=== PATIENT | female | born 1955 | race Caucasian/White ===

== ENCOUNTER → 2016-05-11 | Outpatient (CLI) | payer BC ==
[~2016-05-11] MED LIST: ALLOPURINOL300 MG PO; ATENOLOL50 MG PO; B COMPLETE1 EACH PO; CALTRATE PLUS1 EACH PO; FERROUS SULFAT325 MG PO; GABAPENTIN300 MG PO; IRBESARTAN150 MG PO; KLOR-CON M2020 MEQ PO; LASIX40 MG PO; LIPITOR20 MG PO; LO-DOSE ASPIRIN81 M1 PO; LORATADINE10 M2 PO; MELOXICAM15 MG PO; TYLENOL EXTRA500 MG PO
== END | disposition home or self-care (01) ==
DX: M17.12 Unilateral primary osteoarthritis, left knee (principal); M25.562 Pain in left knee; M25.662 Stiffness of left knee, not elsewhere classified; R26.2 Difficulty in walking, not elsewhere classified
CPT/HCPCS: 97110 GP; 97150 GO; 97161 GP; 97165 GO

== ENCOUNTER 2016-05-31 05:42 | Inpatient (IN) | payer BC ==
[~2016-05-31] VITALS: Ht 170.2 cm; Wt 120.2 kg
[2016-05-31 06:00] VITALS: BP 105/62
[2016-05-31] MEDS ORDERED: COUMADIN2.5 MG PO (09:27)
[2016-05-31] MEDS ORDERED: VISTARIL25 MG PO (09:27)
[2016-05-31] MEDS ORDERED: LAB DRAW (09:27)
[2016-05-31] MEDS ORDERED: PERCOCET 5/31 TABLET PO (09:27)
[2016-05-31 10:47] VITALS: BP 155/65
[2016-05-31 16:32] VITALS: BP 125/65
[2016-05-31 19:50] VITALS: BP 144/68
[2016-05-31 23:21] VITALS: BP 129/61
[2016-06-01 03:26] VITALS: BP 117/55
[2016-06-01 05:54] LABS: HEMATOCRIT 28.1 % (36.0-46.0)
[2016-06-01 06:22] LABS: ANION GAP 7 MEQ/L (2-14); CHLORIDE 105 MEQ/L (99-109); GFR ESTIMATE (CALCULATED) > 59 mL/min/; GLUCOSE 126 mg/dL (70-99); POTASSIUM 4.1 MEQ/L (3.7-5.4); SAMPLE HEMOLYSIS CHECK 0; SAMPLE ICTERIC CHECK 0; SAMPLE LIPEMIA CHECK 0; SODIUM 140 MEQ/L (136-147); UREA NITROGEN (BUN) 16 mg/dL (9-23)
[2016-06-01 06:27] LABS: INTER. NORMALIZED RATIO 1.1; PROTHROMBIN TIME 11.1 (9.2-11.2)
[2016-06-01 08:12] VITALS: BP 114/58
[2016-06-01 11:59] VITALS: BP 111/59
[2016-06-01 16:04] VITALS: BP 145/67
[2016-06-01 19:12] VITALS: BP 139/60
[2016-06-02 00:09] VITALS: BP 119/59
[2016-06-02 03:50] VITALS: BP 123/58
[2016-06-02 06:32] LABS: HEMATOCRIT 27.2 % (36.0-46.0); MCV 93.5 FL (83-99)
[2016-06-02 06:41] LABS: INTER. NORMALIZED RATIO 1.1; PROTHROMBIN TIME 11.6 (9.2-11.2)
[2016-06-02 08:10] VITALS: BP 140/63
[2016-06-02 12:08] VITALS: BP 131/61
== END 2016-06-02 15:15 | DRG 470 ==
LOC: 2SOUTH → 3WEST 10:47 → 2SOUTH 12:25 → 3WEST 06-02 15:15
PROVIDERS: Orthopaedic Surgery
PROC: 0SRD0J9 Replacement of Left Knee Joint with Synthetic Substitute, Cemented, Open Approach (ICD-10-PCS; principal; 2016-05-31)
DX: M17.12 Unilateral primary osteoarthritis, left knee (principal); Z68.41 Body mass index [BMI] 40.0-44.9, adult; E78.5 Hyperlipidemia, unspecified; G47.33 Obstructive sleep apnea (adult) (pediatric); I10 Essential (primary) hypertension; G62.9 Polyneuropathy, unspecified; E66.01 Morbid (severe) obesity due to excess calories; I83.893 Varicose veins of bilateral lower extremities with other complications; I83.10 Varicose veins of unspecified lower extremity with inflammation; I34.0 Nonrheumatic mitral (valve) insufficiency; I36.1 Nonrheumatic tricuspid (valve) insufficiency; M10.9 Gout, unspecified
CPT/HCPCS: 80048; 85014; 85018; 85610; 93971; C1713; J0690; J1885; J2175; J2405; J2765; J7050; J7120